=== PATIENT | female | born 1945 | race Caucasian/White ===

== ENCOUNTER → 2021-12-13 07:44 | Outpatient (CLI) | payer OTHER ==
[~2021-12-13 07:44] MED LIST: DIOVAN40 MG; LITHIUM CARBON150 MG
== END | disposition home or self-care (01) ==
LOC: NUCLEAR 07:44
PROVIDERS: ATTEND Surgery
DX: C50.811 Malignant neoplasm of overlapping sites of right female breast (principal)
CPT/HCPCS: 78300; A9503

== ENCOUNTER 2023-11-28 14:02 | Emergency (ER) | payer OTHER ==
[~2023-11-28] VITALS: Ht 157.5 cm; Wt 65.3 kg
[2023-11-28] MEDS ORDERED: ATORVASTATIN CA20 MG PO (14:13)
[2023-11-28] MEDS ORDERED: RESTORIL15 MG PO (14:13)
[2023-11-28] MEDS ORDERED: IRBESARTAN300 MG PO (14:13)
[2023-11-28] MEDS ORDERED: ANASTROZOLE1 MG PO (14:14)
[2023-11-28] MEDS ORDERED: MEMANTINE HCL10 MG PO (14:14)
[2023-11-28] MEDS ORDERED: COZAAR100 MG (14:15)
[2023-11-28 16:28] LABS: HEMATOCRIT 37.1 % (36.0-45.00); HEMOGLOBIN 12.6 g/dL (12.0-15.00); MEAN CELL VOLUME 91.4 fL (80.00-100.00); MEAN CORPUSCULAR HEMOGLOBIN 31.1 pg (27.00-32.0); PLATELET COUNT 265 K/uL (150-450); RED BLOOD COUNT 4.06 M/uL (4.00-6.00)
[2023-11-28 16:58] LABS: ALBUMIN 3.4 gm/dL (3.4-5.0); BILIRUBIN TOTAL 0.53 mg/dL (0.3-1.2); CALCIUM 9.3 mg/dL (8.5-10.1); CREATININE SERUM 0.85 mg/dL (0.55-1.02); GFR 64.85; GLOBULINA 4.1 G/DL (2.4-3.5); TOTAL PROTEIN 7.5 gm/dL (6.4-8.2)
[2023-11-28 17:02] LABS: POTASSIUM 2.97 mEq/L (3.5-5.1)
== END 2023-11-28 17:17 | disposition home or self-care (01) ==
LOC: ER 14:03
PROVIDERS: General Practice
DX: U07.1 COVID-19 (principal); Z88.0 Allergy status to penicillin; I10 Essential (primary) hypertension; Z85.89 Personal history of malignant neoplasm of other organs and systems
CPT/HCPCS: 36415; 96372; 99284; J1100; J1885

== ENCOUNTER 2024-09-10 09:58 | Outpatient (CLI) | payer OTHER ==
[~2024-09-10 09:58] MED LIST changes: +ANASTROZOLE1 MG PO; +ATORVASTATIN CA20 MG PO; +COZAAR100 MG; +IRBESARTAN300 MG PO; +MEMANTINE HCL10 MG PO; +RESTORIL15 MG PO
== END 2024-09-10 09:59 | disposition home or self-care (01) ==
LOC: NUCLEAR 09:58
PROVIDERS: ATTEND Internal Medicine
DX: G09 Sequelae of inflammatory diseases of central nervous system (principal)
CPT/HCPCS: 78803; A9557

== ENCOUNTER 2025-01-21 13:12 | Outpatient (CLI) | payer OTHER | END 2025-01-21 13:13 | disposition home or self-care (01) | LOC: NUCLEAR 13:12 | PROVIDERS: ATTEND Orthopaedic Surgery | DX: M81.0 Age-related osteoporosis without current pathological fracture (principal) ==